=== PATIENT | male | born 1985 | race Caucasian/White ===

== ENCOUNTER 2017-05-21 13:52 | Emergency (ER) | payer MEDICARE | END 2017-05-21 17:25 | disposition home or self-care (01) | LOC: D.ER 13:52 | DX: F31.9 Bipolar disorder, unspecified (principal); F41.9 Anxiety disorder, unspecified; F17.200 Nicotine dependence, unspecified, uncomplicated ==

== ENCOUNTER → 2017-11-15 14:54 | Outpatient (CLI) | payer MEDICARE | END | disposition home or self-care (01) | LOC: D.RAD 14:54 | DX: M54.2 Cervicalgia (principal) ==

== ENCOUNTER → 2018-09-07 14:41 | Outpatient (CLI) | payer MEDICARE | END | disposition home or self-care (01) | LOC: D.RAD 14:41 | PROVIDERS: ATTEND Emergency Medicine | DX: M54.5 Low back pain (principal) ==

== ENCOUNTER 2020-12-06 15:03 | Emergency (ER) | payer MEDICARE, MEDICAID ==
[~2020-12-06] VITALS: Ht 182.9 cm; Wt 79.5 kg
[2020-12-06 15:05] VITALS: BP 142/89; Ht 182.9 cm; Wt 79.5 kg
[2020-12-06] MEDS ORDERED: CORTISPORIN OTI10 M1 EACH EAR (16:54)
== END 2020-12-06 17:42 | disposition home or self-care (01) ==
LOC: D.ER 15:03
DX: H60.92 Unspecified otitis externa, left ear (principal)